=== PATIENT | female | born 1970 | race Caucasian/White ===

== ENCOUNTER → 2021-07-24 13:32 | Outpatient (BNVA) | payer OTHER, SELFPAY | PROVIDERS: PCP Internal Medicine; Visit Provider Nurse Practitioner Family ==

== ENCOUNTER → 2021-09-19 10:00 | Outpatient (BNVA) | payer OTHER, SELFPAY | PROVIDERS: PCP Registered Nurse; Visit Provider Nurse Practitioner Family ==

== ENCOUNTER → 2022-02-14 11:18 | Outpatient (BNVA) | payer OTHER, SELFPAY | PROVIDERS: PCP Registered Nurse; Visit Provider Nurse Practitioner Family | DX: F07.81 Postconcussional syndrome (principal); G43.109 Migraine with aura, not intractable, without status migrainosus; G25.81 Restless legs syndrome | CPT/HCPCS: 99212 ==

== ENCOUNTER → 2022-05-19 10:35 | Outpatient (BNVA) | payer OTHER, SELFPAY | PROVIDERS: PCP Registered Nurse; Visit Provider Nurse Practitioner Family | DX: G43.109 Migraine with aura, not intractable, without status migrainosus (principal); F07.81 Postconcussional syndrome; G25.81 Restless legs syndrome | CPT/HCPCS: 99212 ==

== ENCOUNTER 2023-12-02 07:54 | Outpatient (AMB) | payer OTHER, SELFPAY ==
--- NOTE | 2023-12-02 07:59 | MHC.OFFVIS ---
Vital Signs 12/02/23 08:01 Height 5 ft 2 in Weight 195 lb BMI 35.7 BP 124/88 Blood Pressure Location Rt brachial Position Sitting Pulse 86 Pulse Source Pulse Oximeter Pulse Oximetry (%) 96 Oxygen Delivery Method Room Air Intake Visit Reasons: Follow up-LVM Intake Note: Patient presents for follow up. Patient hasn't followede up for in 2 years patient having difficult concentrating, loses balance poor memory and vertigo. Allergies sumatriptan [From Imitrex] Allergy (Verified 12/02/23 08:03) chest pain, left jaw pain, LUE pain buspirone [From BuSpar] Adverse Reaction (Verified 12/02/23 08:03) unknown diphenhydramine [From Benadryl] Adverse Reaction (Verified 12/02/23 08:03) awake for days. topiramate [From Topamax] Adverse Reaction (Verified 12/02/23 08:03) makes her burst out inappropriate things- Tourettes like. Medication List - Last Reconciled 12/02/23 by RADHA Matthews albuterol sulfate 90 mcg/actuation 2 puffs inhalation Q4H albuterol-budesonide 90-80 mcg/actuation (Airsupra) 2 inhalations inhalation DAILY PRN amitriptyline 50 mg PO DAILY amitriptyline 1/2 tab qhs x's 4 weeks then 1 tab qhs PO bedtime; 30 days avnroqjojj-usvpugwv-qylbmvywlf 160-9-4.8 mcg/actuation (Breztri Aerosphere) 2 inhalations inhalation BID chlorthalidone 15 mg PO DAILY ferrous gluconate (Ferate) 240 mg PO DAILY fluticasone furoate-vilanterol 200-25 mcg/dose (Breo Ellipta) 1 inh inhalation DAILY gabapentin 600 mg PO BEDTIME 30 days galcanezumab-gnlm (Emgality Pen) 120 mg subcut ONCE 30 days lactulose 20 grams (30 mL) PO BID PRN 30 days lamotrigine (Lamictal) 300 mg PO DAILY linaclotide (Linzess) 144 mcg PO DAILY lorazepam 0.5 mg PO DAILY PRN magnesium oxide 400 mg PO DAILY montelukast (Singulair) mg PO DAILY omeprazole 20 mg PO BID quetiapine (Seroquel) 400 mg PO BEDTIME quetiapine (Seroquel) 225 mg PO BEDTIME ropinirole 2.5 mg PO DAILY ubrogepant 50 - 100 mg orally at onset of migraine, may repeat in 2 hours (max 200mg/day) PRN; may take w/ Aleve 30 days HPI Comments Details: 53-yr-old female presents for f/u visit. Pt last seen 2 yrs ago by us. Pt reports she was doing better, was exercising regularly. Then she had Covid-19 in May, and since she has had increased SOB on exertion. She has not been as active. She has gained approx 25 lbs. She has seen her applied psychology professor, who had her do PFT- which were mildly abnormal. She saw cardiology- had a stress test on Thursday, and is scheduled for echocardiogram and nuclear scan. She states recent labs- She recently saw a dentist, who was concerned she may have sleep apnea. Pt endorses- snoring, apneas, unrefreshing, fatigue. Pt reports she has been having increased forgetfulness, word finding difficulties. She has been losing her balance more. She can feel spacey or like In January, she had a fall and sent for PT at [facility]. She had a vestibular eval- and was told positive test but was advised to see neuro. After the dizziness started she had an increase in migraines. At some point she had a 2 week migraine. More recently she has been having a migraine 2 x's per week. She has some days w/ low grade headache. The Ubrelvy helps. Emgality was denied. She is still on Amitriptyline and Lamotrigine. [facility] Medical History Carpal tunnel syndrome on both sides Surgical History History of back surgery History of bladder surgery [place] teeth removed H/O foot surgery Hx of cholecystectomy Family History Father Heart disease Glaucoma Hyperlipidemia Mother Osteopenia Social History Household Members: Children Alcohol intake: former Patient Tobacco Use Status: Never used Tobacco Current occupational status: employed Current occupation: BEHAVIORAL HEALTH CLINICIAN Physical Exam Vital Signs: Last Vital Signs Pulse 86 12/02/23 08:01 BP 124/88 12/02/23 08:01 Pulse Ox 96 12/02/23 08:01 Oxygen Delivery Method Room Air 12/02/23 08:01 BMI result Body Mass Index 35.7 Const General: cooperative and no acute distress Orientation/consciousness: patient oriented x3 Resp Effort & Inspection: normal respiratory effort and able to speak in complete sentences Neuro General: patient oriented x3 Cranial nerves: Yes CN's II-XII intact bilaterally (w/ exception of delayed EOM) Cognition (Neuro): normal cognition Psych Appearance: grossly normal Mental Status: mental status grossly normal Speech and movement: Normal speech and movement present Affect: normal affect Attitude: cooperative Assessment & Plan Assessment & Plan (1) Sleep difficulties: Code(s): G47.9 - Sleep disorder, unspecified Category: Medical (2) Snoring: Code(s): R06.83 - Snoring Category: Medical (3) Excessive daytime sleepiness: Code(s): G47.19 - Other hypersomnia Category: Medical (4) Cognitive changes: Code(s): R41.89 - Other symptoms and signs involving cognitive functions and awareness Category: Medical (5) Vertigo: Code(s): R42 - Dizziness and giddiness Category: Medical (6) Cognitive changes: Code(s): R41.89 - Other symptoms and signs involving cognitive functions and awareness Category: Medical (7) History of COVID-19: Code(s): Z86.16 - Personal history of COVID-19 Category: Medical (8) Vertigo: Code(s): R42 - Dizziness and giddiness Category: Medical (9) Migraine with aura and without status migrainosus, not intractable: Code(s): G43.109 - Migraine with aura, not intractable, without status migrainosus Category: Medical Plan Will request recent lab work-up by applied psychology professor and PCP. Check almotrigine and amitriptyline levels today. HST to assess status of sleep apnea- pt is not on PAP and does not have a PAP machine Brain MRI w/wo to assess for central etiologies of vertigo and cognitive changes- pt requests open MRI w/ pre-med. Will refer to vestibular PT specialist. For migraine: Emgality 240mg- denied. Continue amitriptyline 50mg qhs Resume magnesium, riboflavin.? Continue the Ubrelvy as needed, max 200 mg per day.? May adjunct with ibuprofen or naproxen as needed. Previous prvention tx trials: Topiramate- mood changes, Tx contraindications: BBs d/t dx of asthma. For restless legs: Monitor f/u upon revioew of above and in 3 months or sooner in clinic Orders: Orders RT home sleep study Today G47.19 - Other hypersomnia, G47.9 - Sleep disorder, unspecified, R06.83 - Snoring Lamotrigine Lamictal Today R42 - Dizziness and giddiness PT Evaluation and Treatment Today G43.109 - Migraine with aura, not intractable, without status migrainosus, R42 - Dizziness and giddiness Amitriptyline (Elavil), Serum Today R41.89 - Other symptoms and signs involving cognitive functions and awareness, R42 - Dizziness and giddiness EEG electroencephalogram Today R41.89 - Other symptoms and signs involving cognitive functions and awareness MR head/brain wo/w con Today R41.89 - Other symptoms and signs involving cognitive functions and awareness, R42 - Dizziness and giddiness, Z86.16 - Personal history of COVID-19 Medications: New riboflavin (vitamin B2) 400 mg PO DAILY 30 days 30 tabs 6RF alprazolam (2 x 0.25 mg) 0.5 mg orally 0 minutes prior to MRI, may repeat x's 1; 1 day 4 tabs 0RF Changed From magnesium oxide 400 mg PO DAILY To magnesium oxide 400 mg PO DAILY 30 days 30 caps 6RF Coding Level of Care Code Est Pt Level 4 (77182) Diagnoses Sleep difficulties G47.9 Snoring R06.83 Excessive daytime sleepiness G47.19 Cognitive changes R41.89 Vertigo R42 History of COVID-19 Z86.16 Migraine with aura and without status migrainosus, not intractable G43.109 [place] Sleepiness Scale Questions Sitting and reading: high chance of dozing Watching TV: high chance of dozing Sitting inactive in a theater, movie etc.: high chance of dozing As a passenger in a car for an hour without break: would never doze Lying down in the afternoon when circumstances permit: high chance of dozing Sitting and talking to someone: would never doze Sitting quietly after lunch without alcohol: high chance of dozing In a car, while stopped for a few minutes in the traffic: would never doze ESS < 10: normal, ESS > 12: pathologic: 15
[2023-12-02 08:01] VITALS: BP 124/88; PULSE 86; O2SAT 96; BMI 35.7
== END 2023-12-02 08:57 | disposition home or self-care (01) ==
PROVIDERS: PCP Registered Nurse; Visit Provider Nurse Practitioner Family
DX: G47.9 Sleep disorder, unspecified (principal); R06.83 Snoring; G47.19 Other hypersomnia; R41.89 Other symptoms and signs involving cognitive functions and awareness; R42 Dizziness and giddiness; Z86.16 Personal history of COVID-19; G43.109 Migraine with aura, not intractable, without status migrainosus
CPT/HCPCS: 99214

== ENCOUNTER → 2023-12-02 07:54 | Outpatient (BNVA) | payer OTHER, SELFPAY | PROVIDERS: PCP Registered Nurse; Visit Provider Nurse Practitioner Family ==

== ENCOUNTER 2023-12-02 08:57 | Outpatient (REF) | payer OTHER, SELFPAY ==
[2023-12-05 18:08] LABS: Lamotrigine Lamictal 7.2 mcg/mL (2.5-15.0)
== END 2023-12-02 08:58 | disposition home or self-care (01) ==
LOC: HO.HKASLDS 08:57
PROVIDERS: Visit Provider Nurse Practitioner Family
DX: R42 Dizziness and giddiness (principal)
CPT/HCPCS: 36415; 80175

== ENCOUNTER 2023-12-15 08:00 | Outpatient (REF) | payer OTHER, SELFPAY ==
--- NOTE | 2023-12-15 08:05 | EEG_ITS ---
FINDINGS: Waking background activity consists of a moderate voltage 10 hertz posterior alpha frequency that is seen symmetrically and attenuates well with eye opening, while low voltage fast frequencies predominate anteriorly. Photic stimulation and hyperventilation are without activation. No focal, lateralizing, or paroxysmal discharges are seen. IMPRESSION: This waking EEG is within normal limits. MD INDERJIT Ventura/TAY / [id number]
== END 2023-12-15 08:01 | disposition home or self-care (01) ==
LOC: HO.NEURO 08:00
PROVIDERS: PCP Registered Nurse; Visit Provider Nurse Practitioner Family
DX: R41.89 Other symptoms and signs involving cognitive functions and awareness (principal)
CPT/HCPCS: 95816

== ENCOUNTER → 2024-01-07 10:24 | Outpatient (REF) | payer OTHER, SELFPAY | LOC: HO.SL 10:24 | PROVIDERS: PCP Registered Nurse; Visit Provider Nurse Practitioner Family | DX: G47.19 Other hypersomnia (principal); R06.83 Snoring | CPT/HCPCS: 95806 ==

== ENCOUNTER 2024-01-08 08:00 | Outpatient (REF) | payer OTHER, SELFPAY ==
--- NOTE | ~2024-01-08 | MR_ITS ---
EXAMINATION: MR BRAIN WITHOUT AND WITH CONTRAST CLINICAL INFORMATION: Dizziness COMPARISON: None TECHNIQUE: Multiplanar multisequence MR imaging of the brain was obtained without and following the administration of 9 mL Gadavist intravenous contrast. FINDINGS: There is no acute infarct on diffusion-weighted imaging. There is no intracranial hemorrhage on iron-sensitive imaging. No extra-axial collection or mass effect/herniation. Normal parenchymal signal characteristics. No hydrocephalus. The ventricles are normal in morphology and size. No abnormal parenchymal or extra-axial enhancement. The major flow voids at the skull base are preserved. The midline structures are normal. The cerebellar tonsils are normally positioned. The craniocervical junction is normal. Marrow signal is within normal limits. The visualized soft tissues are without significant abnormality. Trace scattered paranasal sinus mucosal thickening. MR/MR head/brain wo/w con IMPRESSION: Unremarkable contrast enhanced MRI of the brain.
[2024-01-08] MEDS: gadobutroL 10 ML VIAL IVPUSH (09:01)
== END 2024-01-08 08:01 | disposition home or self-care (01) ==
LOC: HO.MRI 08:00
PROVIDERS: PCP Registered Nurse; Visit Provider Nurse Practitioner Family
DX: R42 Dizziness and giddiness (principal); R41.89 Other symptoms and signs involving cognitive functions and awareness; Z86.16 Personal history of COVID-19
CPT/HCPCS: 70553; A9585

== ENCOUNTER → 2024-01-10 11:00 | Outpatient (BNV) | payer OTHER, SELFPAY | PROVIDERS: PCP Registered Nurse; Visit Provider Psychiatry & Neurology Neurology | DX: R06.83 Snoring (principal) | CPT/HCPCS: 95806 ==

== ENCOUNTER 2024-03-03 07:20 | Outpatient (AMB) | payer OTHER, SELFPAY ==
--- NOTE | 2024-03-03 07:31 | MHC.OFFVIS ---
Vital Signs 03/03/24 07:32 Height 5 ft 2 in Weight 195 lb BMI 35.7 BP 124/78 Pulse 86 Pulse Source Pulse Oximeter Pulse Oximetry (%) 96 Oxygen Delivery Method Room Air Intake Visit Reasons: 3 Month F/U-CONF Intake Note: Patient presents for 3 month follow up. Patient states still having memory issues and vertigo. Allergies sumatriptan [From Imitrex] Allergy (Verified 03/03/24 07:40) chest pain, left jaw pain, LUE pain buspirone [From BuSpar] Adverse Reaction (Verified 03/03/24 07:40) unknown diphenhydramine [From Benadryl] Adverse Reaction (Verified 03/03/24 07:40) awake for days. topiramate [From Topamax] Adverse Reaction (Verified 03/03/24 07:40) makes her burst out inappropriate things- Tourettes like. Medication List - Last Reconciled 03/03/24 by RADHA Matthews albuterol sulfate 90 mcg/actuation 2 puffs inhalation Q4H albuterol-budesonide 90-80 mcg/actuation (Airsupra) 2 inhalations inhalation DAILY PRN alprazolam 0.5 mg orally 0 minutes prior to MRI, november repeat x's 1; 1 day amitriptyline 50 mg PO DAILY amitriptyline 1/2 tab qhs x's 4 weeks then 1 tab qhs PO bedtime; 30 days liidmfxtfy-lhfygqcn-aqjxctozlu 160-9-4.8 mcg/actuation (Breztri Aerosphere) 2 inhalations inhalation BID chlorthalidone 15 mg PO DAILY ferrous gluconate (Ferate) 240 mg PO DAILY fluticasone furoate-vilanterol 200-25 mcg/dose (Breo Ellipta) 1 inh inhalation DAILY gabapentin 300 mg PO BEDTIME galcanezumab-gnlm (Emgality Pen) 120 mg subcut ONCE 30 days lactulose 20 grams (30 mL) PO BID PRN 30 days lamotrigine (Lamictal) 300 mg PO DAILY linaclotide (Linzess) 144 mcg PO DAILY lorazepam 0.5 mg PO DAILY PRN magnesium oxide 400 mg PO DAILY 30 days montelukast (Singulair) mg PO DAILY omeprazole 20 mg PO BID quetiapine (Seroquel) 400 mg PO BEDTIME quetiapine (Seroquel) 225 mg PO BEDTIME riboflavin (vitamin B2) 400 mg PO DAILY 30 days ropinirole 2.5 mg PO DAILY ubrogepant 50 - 100 mg orally at onset of migraine, may repeat in 2 hours (max 200mg/day) PRN; may take w/ Aleve 30 days HPI Comments Details: 53-yr-old female presents for f/u visit. Pt denies any significant interval medical changes. Brain MRI was unremarkable HST showed AHI 4.2/hr. Lamotrigine level was WNL. Amitriptyline level was not drawn. She continues to have cognitive difficulties. States she has been easily distracted. She sometimes sends emails that others do not understand and when she reads it herself she does not understand. She almost had to go on a performance improvement plan at work. However, she also wonders if it is also r/t increased stress. 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 Her 18yo dtr recently gave to a baby- however pt was unaware dtr was until 2 wks before delivery (as dtr herself was unaware she was until very late). Dtr and dtr's and baby are now living with her. Has a low grade daily headache, and a stronger migraine 1-2 days per week. If she does not catch the migraine, it may last longer. Can still be photophobic. Pt can still be dizzy at times. She did not do the vestibular tx- they called around the time when her dtr gave . Continues to have sleeping diffciulties, snoring, daytime sleepiness. [facility] Medical History Carpal tunnel syndrome on both sides Surgical History History of back surgery History of bladder surgery [place] teeth removed H/O foot surgery Hx of cholecystectomy Family History Father Heart disease Glaucoma Hyperlipidemia Mother Osteopenia Social History Household Members: Children Alcohol intake: former Patient Tobacco Use Status: Never used Tobacco Current occupational status: employed Current occupation: BEHAVIORAL HEALTH CLINICIAN Physical Exam Vital Signs: Last Vital Signs Pulse 86 03/03/24 07:32 BP 124/78 03/03/24 07:32 Pulse Ox 96 03/03/24 07:32 Oxygen Delivery Method Room Air 03/03/24 07:32 BMI result Body Mass Index 35.7 Const General: cooperative and no acute distress Orientation/consciousness: patient oriented x3 Resp Effort & Inspection: normal respiratory effort and able to speak in complete sentences Neuro General: patient oriented x3 Cranial nerves: Yes CN's II-XII intact bilaterally Cognition (Neuro): normal cognition Psych Appearance: grossly normal Mental Status: mental status grossly normal Speech and movement: Normal speech and movement present Affect: normal affect Attitude: cooperative Assessment & Plan Assessment & Plan (1) Postconcussional syndrome: Comment: s/p workplace injury 06/22/19. Code(s): F07.81 - Postconcussional syndrome Category: Medical (2) Migraine with aura and without status migrainosus, not intractable: Code(s): G43.109 - Migraine with aura, not intractable, without status migrainosus Category: Medical (3) Restless leg syndrome: Comment: exacerbated by work-place concussion Code(s): G25.81 - Restless legs syndrome Category: Medical (4) Sleep difficulties: Code(s): G47.9 - Sleep disorder, unspecified Category: Medical (5) Snoring: Code(s): R06.83 - Snoring Category: Medical (6) Excessive daytime sleepiness: Code(s): G47.19 - Other hypersomnia Category: Medical (7) Cognitive changes: Code(s): R41.89 - Other symptoms and signs involving cognitive functions and awareness Category: Medical Plan Reviewed HST inconclusive- pt advised to undergo f/u in-lab PSG to furtehr assess status of sleep apnea Reviewed Brain MRI w/wo- unremarkable Again advised to start vestibular PT specialist- pt will call to schedule For cognition- Consider trial of low dose neuro-stimulant- pt will discuss w/ psychiatrist and let us know. ? For migraine: Continue amitriptyline 50mg qhs Resume magnesium, riboflavin.? Continue the Ubrelvy as needed, max 200 mg per day.? May adjunct with ibuprofen or naproxen as needed. Previous prvention tx trials: Topiramate- mood changes, Tx contraindications: BBs d/t dx of asthma. Note: Emgality 240mg- denied. ? For restless legs: Monitor Orders: Orders RT PSG in-lab sleep study Today RADHA Matthews Medications: Changed From gabapentin 600 mg PO BEDTIME 30 days 30 tabs 6RF To gabapentin 300 mg PO BEDTIME Raj Peguero CNP Coding Level of Care Code Est Pt Level 4 (18960) Diagnoses Postconcussional syndrome F07.81 Migraine with aura and without status migrainosus, not intractable G43.109 Restless leg syndrome G25.81 Sleep difficulties G47.9 Snoring R06.83 Excessive daytime sleepiness G47.19 Cognitive changes R41.89
[2024-03-03 07:32] VITALS: BP 124/78; PULSE 86; O2SAT 96; BMI 35.7
== END 2024-03-03 08:27 | disposition home or self-care (01) ==
PROVIDERS: PCP Registered Nurse; Visit Provider Nurse Practitioner Family
DX: G44.309 Post-traumatic headache, unspecified, not intractable (principal); F07.81 Postconcussional syndrome; G25.81 Restless legs syndrome; G47.9 Sleep disorder, unspecified; R06.83 Snoring; G47.19 Other hypersomnia; R41.89 Other symptoms and signs involving cognitive functions and awareness
CPT/HCPCS: 99214

== ENCOUNTER → 2024-03-03 07:20 | Outpatient (BNVA) | payer OTHER, SELFPAY | PROVIDERS: PCP Registered Nurse; Visit Provider Nurse Practitioner Family ==

== ENCOUNTER 2024-03-31 13:52 | Outpatient (AMB) | payer OTHER, SELFPAY ==
--- NOTE | 2024-03-31 14:20 | MHC.OFFVIS ---
Vital Signs 03/31/24 14:21 Height 5 ft 2 in Weight 192 lb BMI 35.1 BP 128/90 H Blood Pressure Location Lt brachial Position Sitting Pulse 100 Pulse Source Pulse Oximeter Pulse Oximetry (%) 96 Oxygen Delivery Method Room Air Intake Visit Reasons: Follow up Process Control Supervisor Required: No Accompanied by: Self / Same As Patient Allergies sumatriptan [From Imitrex] Allergy (Verified 03/31/24 14:21) chest pain, left jaw pain, LUE pain buspirone [From BuSpar] Adverse Reaction (Verified 03/31/24 14:21) unknown diphenhydramine [From Benadryl] Adverse Reaction (Verified 03/31/24 14:21) awake for days. topiramate [From Topamax] Adverse Reaction (Verified 03/31/24 14:21) makes her burst out inappropriate things- Tourettes like. Medication List - Last Reconciled 03/31/24 by RADHA Matthews albuterol-budesonide 90-80 mcg/actuation (Airsupra) 2 inhalations inhalation DAILY PRN amitriptyline 50 mg PO DAILY gslxsziaek-pytarqbo-tbdeglcfpz 160-9-4.8 mcg/actuation (Breztri Aerosphere) 2 inhalations inhalation BID chlorthalidone 15 mg PO DAILY cyclobenzaprine 10 mg PO BEDTIME gabapentin 200 mg PO BEDTIME lamotrigine (Lamictal) 300 mg PO DAILY lorazepam 0.5 mg PO DAILY PRN magnesium oxide 400 mg PO DAILY 30 days montelukast (Singulair) mg PO DAILY omeprazole 20 mg PO BID ondansetron 4 mg PO Q8H prednisone 50 mg PO DAILY quetiapine (Seroquel) 400 mg PO BEDTIME HPI Comments Details: 53-yr-old female presents for urgent visit s/p fall. Pt reports 4 days ago, 03/27/24, she was standing in her room as she was going to take her scheduled inhaler, when all of a sudden she started to fall backwards, striking her lower back and then her head on the hardwood floor. Pt did yell as she fell backwards. She is not sure if she had LOC- maybe a moment, as she found herself on her hands and knees and does not recall flipping over. Immediately, she felt shooting/aching head pain, nausea w/o vomiting, dizziness, neck and back pain. She states that overall the rest of the day was a blur. She did not go to the ER. Since, she has had a continuous migraine headache, photophobia, some dizziness after walking for a bit, She did try working this week, but her patients began telling her that she was repeating herself. She saw her PCP yesterday afternoon, who ordered a stat head CT which was read as normal. Her PCP has taken her out of work for a month. She is also on a 10 day Prednisone taper, Zofran, cyclobenzaprine. She has not had the sleep study yet or started PT- states needs a new order. She is not sure why she fell. Wonder is it is r/t her h/o l-spine repair. She denies numbness/tingling. [facility] Medical History Carpal tunnel syndrome on both sides Surgical History History of back surgery History of bladder surgery [place] teeth removed H/O foot surgery Hx of cholecystectomy Family History Father Heart disease Glaucoma Hyperlipidemia Mother Osteopenia Social History Household Members: Children Alcohol intake: former Patient Tobacco Use Status: Never used Tobacco Current occupational status: employed Current occupation: BEHAVIORAL HEALTH CLINICIAN Physical Exam Vital Signs: Last Vital Signs Pulse 100 03/31/24 14:21 BP 128/90 H 03/31/24 14:21 Pulse Ox 96 03/31/24 14:21 Oxygen Delivery Method Room Air 03/31/24 14:21 BMI result Body Mass Index 35.1 Const General: cooperative and no acute distress Orientation/consciousness: patient oriented x3 Resp Effort & Inspection: normal respiratory effort and able to speak in complete sentences Neuro Other: Photophobic EOM intact w/o nystagmus- though elicits feeling unwell. Unable to take ? 2 tandem steps. Romberg intact Finger-Nose- w/o dysmetria. Bilateral marked posterior cervical and upper trap tightness. Cervical ROM: limited General: patient oriented x3 Cranial nerves: Yes CN's II-XII intact bilaterally Cognition (Neuro): normal cognition Psych Appearance: grossly normal Mental Status: mental status grossly normal Speech and movement: Normal speech and movement present Affect: normal affect Attitude: cooperative Assessment & Plan Assessment & Plan (1) Concussion: Code(s): S06.0XAA - Concussion with loss of consciousness status unknown, initial encounter Category: Medical (2) Vertigo: Code(s): R42 - Dizziness and giddiness Category: Medical (3) Migraine with aura and without status migrainosus, not intractable: Code(s): G43.109 - Migraine with aura, not intractable, without status migrainosus Category: Medical (4) Postconcussional syndrome: Comment: s/p workplace injury 06/22/19. Code(s): F07.81 - Postconcussional syndrome Category: Medical Plan Pt still advised to have f/u in-lab PSG to further assess status of sleep apnea. ? For new onset concussion: Again advised to start vestibular PT specialist- ? if falls d/t vestibular dysfunction. Ibuprofen 600mg bid x's 7 days w/ food and q 6 hrs prn Cyclobenzaprine 10mg prn. Zofrna prn. Increase Amitriptyline from 50mg to 75mg- if tolerated, will update order. Stop Prednisone- as pt is currently suffering from acute concussion s/s. Continue magnesium, riboflavin.? Continue the Ubrelvy as needed, max 200 mg per day.? May adjunct with ibuprofen or naproxen as needed. Previous prevention tx trials: Topiramate- mood changes, Tx contraindications: BBs d/t dx of asthma. Note: Emgality 240mg- denied. Lamotrigine level- WNL in November 2023. Concur w/ abstaining from work x's 1 month. For cognition- Consider trial of low dose neurostimulant- per pt psychiatrist lower gabapentin instead. ? Medications: New ibuprofen take w/ food 600 mg PO Q6H 30 days PRN 120 tabs 0RF pain Coding Level of Care Code Est Pt Level 4 (60007) Diagnoses Concussion S06.0XAA Vertigo R42 Migraine with aura and without status migrainosus, not intractable G43.109 Postconcussional syndrome F07.81
[2024-03-31 14:21] VITALS: BP 128/90; PULSE 100; O2SAT 96; BMI 35.1
== END 2024-03-31 15:13 | disposition home or self-care (01) ==
PROVIDERS: PCP Registered Nurse; Visit Provider Nurse Practitioner Family
DX: S06.0XAA Concussion with loss of consciousness status unknown, initial encounter (principal); R42 Dizziness and giddiness; G43.109 Migraine with aura, not intractable, without status migrainosus
CPT/HCPCS: 99214

== ENCOUNTER → 2024-03-31 13:52 | Outpatient (BNVA) | payer OTHER, SELFPAY | PROVIDERS: PCP Registered Nurse; Visit Provider Nurse Practitioner Family ==

== ENCOUNTER 2024-08-05 09:18 | Outpatient (AMB) | payer OTHER, SELFPAY ==
[2024-08-05 09:31] VITALS: BP 148/92; PULSE 91; O2SAT 98; BMI 37.3
--- NOTE | 2024-08-05 09:31 | A.OFFVIS_ITS ---
Vital Signs 08/05/24 09:31 Height 5 ft 2 in Weight 204 lb BMI 37.3 BP 148/92 H Blood Pressure Location Rt brachial Position Sitting Pulse 91 Pulse Source Pulse Oximeter Pulse Oximetry (%) 98 Oxygen Delivery Method Room Air Intake Visit Reasons: Follow Up Sales Office Administrator Required: No Accompanied by: Self / Same As Patient Allergies sumatriptan [From Imitrex] Allergy (Verified 08/05/24 09:35) chest pain, left jaw pain, LUE pain buspirone [From BuSpar] Adverse Reaction (Verified 08/05/24 09:35) unknown diphenhydramine [From Benadryl] Adverse Reaction (Verified 08/05/24 09:35) awake for days. topiramate [From Topamax] Adverse Reaction (Verified 08/05/24 09:35) makes her burst out inappropriate things- Tourettes like. Medication List - Last Reconciled 08/05/24 by RADHA Matthews amitriptyline 50 mg PO DAILY nedsmqfrti-ywzlpagg-fijwyzganz 160-9-4.8 mcg/actuation (Breztri Aerosphere) 2 inhalations inhalation BID cyclobenzaprine 10 mg PO BEDTIME gabapentin 200 mg PO BEDTIME ibuprofen 600 mg PO Q6H PRN 30 days lamotrigine (Lamictal) 300 mg PO DAILY lorazepam 0.5 mg PO DAILY PRN magnesium oxide 400 mg PO DAILY 30 days montelukast (Singulair) mg PO DAILY omeprazole 20 mg PO BID ondansetron 4 mg PO Q8H prednisone 50 mg PO DAILY quetiapine (Seroquel) 400 mg PO BEDTIME Do you need a note to return to daycare/school/sports/work: No HPI Comments Details: 53-yr-old female presents for She notes she has been out of work since March s/p the fall. Pt reports she has been doing better- has not been having the crushing post- concussive headache. However about a week ago, she started having a daily migraine headache. Some days were better than others. Yesterday, the migraine was much more severe- thought she was not going to make it, but the headache eventually broke last night. Just now, she realizes that she did bump her head about 2 weeks ago- and did h ave the same concussive type crushing headache for a few hours. She also notes she has had some difficulty with navigating door ways, is prone to bump into a door way. She plans to have follow-up eye exam, as generally she feels her vision isn't as good as before. Her amitriptyline was increased to 100 mg about a month ago, to help with the headache burden. She stopped Gabapentin completely about 1.5 months ago, in hopes this would help cognition. She was tried on stratterra by her psychiatrist, which may have helped some but it caused significant dry mouth and dry eye so she stopped it. Unfortunately, she is no longer seeing her psychiatrist. Her PCP has referred her for neuropsych testing, initially for postconcussive and now for ADD/ADHD evaluation. Pt reports she was diagnosed with possible depression by her automotive wholesale parts advisor in high school. As a child she states she was prone to procrastination, drooling, and felt school work was hard when in middle/high school. She was a better s tudent in college- in her late 20s. Her mother has been managing her finances- as she would forget to pay her bills- x's at least 10 yrs. Is prone to not opening her mail-wonders if this is residual anxiety R/T periods in her life when she could not afford to pay them. She has been criticized at work for not completing paperwork on time, and she fixes it for some time but then slips back do not completing her work on time. [facility] Medical History Carpal tunnel syndrome on both sides Surgical History History of back surgery History of bladder surgery [place] teeth removed H/O foot surgery Hx of cholecystectomy Family History Father Heart disease Glaucoma Hyperlipidemia Mother Osteopenia Social History Household Members: Children Alcohol intake: former Patient Tobacco Use Status: Never used Tobacco Current occupational status: employed Current occupation: BEHAVIORAL HEALTH CLINICIAN Physical Exam Vital Signs: Last Vital Signs Pulse 91 08/05/24 09:31 BP 148/92 H 08/05/24 09:31 Pulse Ox 98 08/05/24 09:31 Oxygen Delivery Method Room Air 08/05/24 09:31 BMI result Body Mass Index 37.3 Const General: cooperative and no acute distress Orientation/consciousness: patient oriented x3 Resp Effort & Inspection: normal respiratory effort and able to speak in complete sentences Neuro Other: Photophobic General: patient oriented x3 Cranial nerves: Yes CN's II-XII intact bilaterally Cognition (Neuro): normal cognition Psych Appearance: grossly normal Mental Status: mental status grossly normal Speech and movement: Normal speech and movement present Affect: normal affect Attitude: cooperative Assessment & Plan Assessment & Plan (1) Postconcussional syndrome: Comment: s/p workplace injury 06/22/19. Exacerbated by a fall with positive head strike in 04/08/2024 Code(s): F07.81 - Postconcussional syndrome Category: Medical (2) Vertigo: Code(s): R42 - Dizziness and giddiness Category: Medical (3) Migraine with aura and without status migrainosus, not intractable: Code(s): G43.109 - Migraine with aura, not intractable, without status migrainosus Category: Medical (4) Cognitive changes: Code(s): R41.89 - Other symptoms and signs involving cognitive functions and awareness Category: Medical Plan We will follow-up on order for in-lab PSG to further assess status of sleep apnea. For postconcussive syndrome, exacerbated by new concussion in 04/08/2024: Vestibular PT exercises. Concur with patient having an updated eye exam. If exam normal, but depth perception issues persists, consider referral to a diplopia specialist. For postconcussive migraine prevention: Continue magnesium, riboflavin.? Continue Amitriptyline 100 mg q.h.s. Previous prevention tx trials: Topiramate- mood changes, Tx contraindications: BBs d/t dx of asthma. Note: Emgality- denied. For acute postconcussive migraine treatment: Cyclobenzaprine 10mg prn muscle spasm. Ondansetron prn. Continue the Ubrelvy as needed, max 200 mg per day.? May adjunct with ibuprofen or naproxen as needed. For postconcussive cognitive difficulties: Start Adderall ER 5 mg q.a.m. and if tolerated may increase to 10 mg q.a.m- in hopes this reduces cognitive strain, and reduces risk for breakthrough headache, especially as she is returning to work. Concur with neuro psych or psychiatry eval for ADD/ADHD/postconcussive cognitive disorder. Reviewed common side effects to monitor for, including decreased appetite, palpitations, HTN. If HTN worsens, she may need to resume her chlorthalidone- possible that her amitriptyline is likely the primary cause of her dry mouth s/s, and thus we may need to consider decreasing this. Concur with neuropsych eval to assess for underlying undiagnosed ADD/ADHD which may have been exacerbated by her concussions. ? Medications: New dextroamphetamine-amphetamine 5 mg (Adderall) Partial Fill upon patient request. 10 mg (2 x 5 mg) PO DAILY 30 days 60 tabs 0RF Changed From amitriptyline 50 mg PO DAILY To amitriptyline 100 mg PO DAILY Coding Level of Care Code Est Pt Level 4 (63947) Diagnoses Postconcussional syndrome F07.81 Vertigo R42 Migraine with aura and without status migrainosus, not intractable G43.109 Cognitive changes R41.89
== END 2024-08-05 10:22 | disposition home or self-care (01) ==
PROVIDERS: PCP Registered Nurse; Visit Provider Nurse Practitioner Family
DX: R42 Dizziness and giddiness (principal); R41.89 Other symptoms and signs involving cognitive functions and awareness; F07.81 Postconcussional syndrome; G44.309 Post-traumatic headache, unspecified, not intractable
CPT/HCPCS: 99214

== ENCOUNTER 2025-04-13 13:49 | Outpatient (AMB) | payer MEDICAID, SELFPAY ==
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
[2025-04-13 14:00] VITALS: BP 120/90; PULSE 96; O2SAT 95; BMI 33.7
--- OUTSIDE RECORDS SUMMARY | 2025-04-13 18:20 | XMS_ITS | Clinical Summary ---
Author Organization [facility] Address [address] [place] [address] Phone Care Team Providers Care Camera Maker Name Role Phone Susan Naylor Primary Care Provider Allergies Active Allergy Reactions Criticality Noted Date Comments Amlodipine Itching 10/11/2024 Animal Dander Wheezing 10/11/2024 Buspirone Itching,Mental Status Change 10/11/2024 Buspar Cider Vinegar Rash Low 10/11/2024 Gluten Diarrhea 10/11/2024 Hydrochlorothiazide Insomnia Low 10/11/2024 hydrochlorothiaz safia Pollen Extracts Wheezing 10/11/2024 Shellfish Containing Products Anaphylaxis High 10/11/2024 Sumatriptan Angina,Palpitations High 10/11/2024 Temazepam Unknown 10/11/2024 Tramadol Joint Pain Low 10/11/2024 Medications omeprazole (PRILOSEC) 20 MG capsule TAKE 1 CAPSULE BY MOUTH TWICE DAILY DIRECTED 07/30/2024 Active SEROQUEL XR 400 mg 24 hr tablet Take 1 tablet by mouth daily. Active lamoTRIgine (LAMICTAL XR) 200 mg TR24 Take 400 mg by mouth daily. Active Social History Tobacco Use Types Packs/Day Years Used Date Smoking Tobacco: Never Assessed Education Answer Date Recorded Are you interested in more education? Not on nicole e 11/11/2023 Are you concerned about learning? Not on file 11/11/2023 No 11/11/2023 No 11/11/2023 Digital Access Answer Date Recorded No 11/11/2023 No 11/11/2023 Reliable internet access at home? Not on file 11/11/2023 Device with a working camera? Not on file Intimate Partner Violence Answer Date R ecorded Are you denied basic needs s uch as food, clothing, or medical care? No 10/11/2024 In the past 12 months have y ou been in a relationship with a person who hurts, threatens, or tries to control you? No 10/11/2024 Are you denied basic needs s uch as food, clothing, or medical care? No 10/11/2024 In the past 12 months have y ou been in a relationship with a person who hurts, threatens, or tries to control you? No 10/11/2024 Comments Unknown Sex and Gender Information Value Date Recorded Sex Assigned at Female 10/11/2024 12:26 AM EDT Legal Sex Female 8:33 PM EDT Gender Identity Female 11/18/2023 6:57 PM EDT Sexual Orientation Straight 10/11/2024 12 :26 AM EDT Last Filed Vital Signs Vital Sign Reading Time Taken Comments Blood Pressure 116/78 10/11/2024 3:00 AM EDT Pulse 81 10/11/2024 3:00 AM EDT Temperature 36.3 C (97.3 F) 10/11/2024 12:05 AM EDT temporal Respiratory Rate 14 10/11/2024 3:00 AM EDT Oxygen Saturation 100% 10/11/2024 3:00 AM EDT Inhaled Oxygen Concentration - - Weight 92.6 kg (204 lb 2.3 oz) 10/11/2024 12:06 AM EDT Height 160 cm (5' 3 ) 10/11/2024 12:06 AM EDT Body Mass Index 36.16 10/11/2024 12:06 AM EDT Plan of Treatment Health Maintenance Due Date Last Done Comments LIPID PANEL 1971 DEPRESSION SCREENING 1983 SMOKING Hx and SMOKELESS TOBACCO SCREENING 1984 HEPATITIS C SCREENING 1989 HIV ONE-TIME SCREENING (18-65 YEARS) 1989 PAP SMEAR 1992 COLOGUARD 2016 COLONOSCOPY 2016 COLORECTAL CANCER SCREENING 2016 FIT TEST 2016 FOBT 2016 SIGMOIDOSCOPY 2016 VIRTUAL COLONOSCOPY 2016 PNEUMOCOCCAL VACCINES (50+ years) (1 of 1 - PCV) 2021 ZOSTER VACCINES (2 of 2) 12/07/2023 10/12/2023 COVID-19 VACCINE ( - 2023- season) 2024 06/18/2023, 12/03/2021, 05/20/2021, Additional history exists MAMMOGRAM 08/26/2024 08/26/2022 Adult Td,Tdap Booster 10/06/2026 10/06/2016, 007 SCREENING FOR DIABETES 11/10/2026 11/11/2023 HEPATITIS A VACCINES Aged Out No long er eligible based on patient's age to complete this topic HIB VACCINES Aged Out No longer eligi ble based on patient's age to complete this topic MENINGOCOCCAL VACCINES (ACWY) Aged Out No longer eligible based on patient's age to complete this topic MENINGOCOCCAL VACCINES (B) Aged Out N o longer eligible based on patient's age to complete this topic Medical Devices Not on file [place] [address] [place] [address] PPO [employer] Care Teams Camera Maker Relationship Specialty Start Date End Date Susan Naylor PA [address] [address] PCP - General Physician Sheet Manager 11/11/23 Additional Source Comments The information contained in this document represents components of the legal health record. It is not the complete legal health record.[facility]
--- OUTSIDE RECORDS SUMMARY | 2025-04-13 18:20 | XMS_ITS | Encounter Summary ---
Author Organization [facility] Address [address] [place] [address] Phone Care Team Providers Care Metal Cnc Operator Name Role Phone Susan Naylor Primary Care Provider Encounter Details Date Type Department Care Team (Late st Contact Info) Description 11/11/2023 Ancillary Orders [facility], X-Ray - [address] [address] Danae Arias, [facility] [address], [address] [place], [place] [id number] [email or web address] Chest tightness (Primary Dx); Cough, unspecified type; SOB (shortness of breath) Social History Tobacco Use Types Packs/Day Years [...] with a working camera? Not on file Comments Unknown Sex and Gender Information Value Date Recorded Sex Assigned at Female 10/11/2024 12:26 AM EDT Legal Sex Female 8:33 PM EDT Gender Identity Female 11/18/2023 6:57 PM EDT Sexual Orientation Straight 10/11/2024 12 :26 AM EDT documented as of this encounter Plan of Treatment Not on file documented as of this encounter Results * XR CHEST PA AND LATERAL 2 VIEWS (11/11/2023 11:31 AM EDT) Anatomical Region Laterality Modality Chest Computed Radiogr aphy 11/11/2023 12:2 2 PM EDT Impressions 11/11/2023 12:22 PM EDT No acute findings. Narrative 11/11/2023 12:22 PM EDT XR CHEST PA AND LATERAL 2 VIEWS Referring clinician's provided indication for this examination in [facility]: Cough; Dyspnea (Shortness of Breath) COMPARISON: None FINDINGS: Lungs: Clear lungs. Pleura: No pleural effusion. No pneumothorax Heart/Mediastinum: Heart size normal. Bones/Soft Tissues: No acute finding Procedure Note Wilbur Cox MD, SHARI - 11/11/2023 XR CHEST PA AND LATERAL 2 VIEWS Referring clinician's provided indication for this examination in [facility]:Cough; Dyspnea (Shortness of Breath) COMPARISON: None FINDINGS: Lungs: Clear lungs. Pleura: No pleural effusion. No pneumothorax Heart/Mediastinum: Heart size normal. Bones/Soft Tissues: No acute finding IMPRESSION: No acute findings. Danae Arias DNP IMG XR CHEST Final Resu lt documented in this encounter Visit Diagnoses Diagnosis Chest tightness- Primary Other chest pain Cough, unspecified type SOB (shortness of breath) Shortness of breath Chest tightness Other chest pain Cough, unspecified type SOB (shortness of breath) Shortness of breath documented in this encounter Care Teams Metal Cnc Operator Relationship Specialty Start Date End Date Susan Naylor PA [address] [place] [address] PCP - General Physician Salesperson Women'S Dresses 11/11/23 documented as of this encounter Additional Source Comments The information contained in this document represents components of the legal health record. It is not the complete legal health record.[facility]
== END 2025-04-13 15:34 | disposition home or self-care (01) ==
LOC: HO.HSMS 13:49
PROVIDERS: PCP Student in an Organized Health Care Education/Training Program; Visit Provider Nurse Practitioner Family
DX: G47.419 Narcolepsy without cataplexy (principal); F07.81 Postconcussional syndrome; G44.309 Post-traumatic headache, unspecified, not intractable; R42 Dizziness and giddiness; R41.89 Other symptoms and signs involving cognitive functions and awareness; R55 Syncope and collapse; H53.9 Unspecified visual disturbance
CPT/HCPCS: 99214

== ENCOUNTER 2025-04-13 13:49 | Outpatient (REF) | payer MEDICAID, SELFPAY ==
[2025-04-13 17:56] LABS: MANUAL DIFF FLAG NO
[2025-04-13 18:07] LABS: Hematocrit 41.2 % (37.0-47.0); Hemoglobin 13.6 g/dl (12.0-16.0); Imm Gran Abs Auto 0.02 X10*3/uL (0.00-0.03); Imm Gran Pct Auto 0.3 % (0.0-0.4); Lymphocytes Absolute Auto 1.9 X10*3/uL (1.2-4.9); Mean Corpuscular HGB Conc 33.0 g/dl (31.0-35.0); Mean Corpuscular Hemoglobin 30.6 pg (27.0-33.0); Mean Corpuscular Volume 92.8 fL (80.0-98.0); NRBC Abs Auto 0.000 X10*3/uL (0.0-0.012); NRBC Pct Auto 0.0 /100WBC (0.0-0.2); Platelet Count 276 X10*3/uL (160-400); Red Blood Count 4.44 X10*6/uL (4.20-5.50); White Blood Count 7.0 X10*3/uL (4.8-10.8)
[2025-04-13 18:41] LABS: Alanine Aminotransferase 42 U/L (0-31); Albumin Level 4.6 g/dL (3.5-5.0); Alkaline Phosphatase 93 U/L (39-117); Anion Gap 13 (12-20); Aspartate Amino Transferase 29 U/L (5-31); Blood Urea Nitrogen 6 mg/dL (9-16); Calcium 9.4 mg/dL (8.4-10.2); Carbon Dioxide 31 mmol/L (22-29); Chloride 104 mmol/L (96-108); Estimated Glomerular Filt Rate 59; Ferritin 69 ng/mL (10-250); Iron 61 mcg/dL (30-160); Magnesium 2.7 mg/dL (1.6-2.6); Percent Iron Saturation 19 % (15-50); Potassium 4.5 mmol/L (3.3-5.1); Sodium 143 mmol/L (135-145); Total Iron Binding Capacity 314 mcg/dL (228-428); Total Protein 7.1 g/dL (6.5-8.0); Unsaturated Iron Binding 253 ug/dL
[2025-04-13 18:57] LABS: Folate 4.8 ng/mL (> or = 4.0); Vitamin B12 328 pg/mL (200-900)
[2025-04-19 14:29] LABS: Vitamin D 25-OH, D2 <4 ng/mL; Vitamin D 25-OH, D3 53 ng/mL; Vitamin D 25-OH, Total 53 ng/mL (30-100)
== END 2025-04-13 13:50 | disposition home or self-care (01) ==
LOC: HO.HKASLDS 13:49
PROVIDERS: PCP Student in an Organized Health Care Education/Training Program; Visit Provider Nurse Practitioner Family
DX: R55 Syncope and collapse (principal); F07.81 Postconcussional syndrome; D64.9 Anemia, unspecified; H53.9 Unspecified visual disturbance; R42 Dizziness and giddiness; R53.83 Other fatigue; E55.9 Vitamin D deficiency, unspecified; E51.9 Thiamine deficiency, unspecified; G47.419 Narcolepsy without cataplexy; G43.109 Migraine with aura, not intractable, without status migrainosus; R41.89 Other symptoms and signs involving cognitive functions and awareness
CPT/HCPCS: 36415; 80053; 82306; 82607; 82728; 82746; 83540; 83735; 84207; 84425; 84443; 85025; 85652; 86140; 99212

== ENCOUNTER 2025-06-20 09:56 | Outpatient (REF) | payer MEDICAID, SELFPAY ==
--- OUTSIDE RECORDS SUMMARY | 2025-06-20 11:09 | XMS_ITS | Clinical Summary ---
Author Organization [facility] Address [address] [place] [address] Phone Care Team Providers Care National Sales Manager Name Role Phone Susan Naylor Primary Care [...] ZOSTER VACCINES (2 of 2) 12/07/2023 10/12/2023 MAMMOGRAM 08/26/2024 08/26/2022 INFLUENZA VACCINE (#1) 2025 , 04/15/2022, 05/20/2021, Additional history exists COVID-19 VACCINE ( season) 2025 06/18/2023, 12/03/2021, 05/20/2021, Additional history exists Adult Td,Tdap Booster 10/06/2026 10/06/2016, 007 SCREENING FOR DIABETES 11/10/2026 11/11/2023 RSV VACCINE (1 - 1-dose 75+ series) 2046 HEPATITIS A VACCINES Aged Out No long [...] topic Medical Devices Not on file Insurance [facility] PPO [facility] [employer] Member Subscriber Plan / Payer (Ef fective 2018-Present) Name:Brenda Pedro Relation to Subscriber:Self Name:Brenda Pedro Payer ID:Not on file Type:PPO Address: [address] Member Subscriber Plan / Payer (Ef fective 2018-Present) Name:Brenda Pedro Relation to Subscriber:Self Name:Brenda Pedro Payer ID:Not on file Type:PPO Address: [address] [employer] Member Subscriber Plan / Payer (Ef fective 2018-Present) Name:Brenda Pedro Relation to Subscriber:Self Name:Brenda Pedro Payer ID:Not on file Type:PPO Address: [address] [employer] Member Subscriber Plan / Payer (Ef fective 2018-Present) Name:Brenda Pedro Relation to Subscriber:Self Name:Brenda Pedro Payer ID:Not on file Type:PPO Address: [address] [employer] [address] [place], [place] [id number] Member Subscriber Plan / Payer (Ef fective 2018-Present) Name:Brenda Pedro Relation to Subscriber:Self Name:Brenda Pedro Payer ID:Not on file Type:PPO Address: [address] [employer] Care Teams National Sales Manager Relationship Specialty Start Date End Date Susan Naylor PA [address] [address] PCP - General Physician Relief Pilot 11/11/23 Additional Source Comments The information contained in this document represents components of the legal health record. It is not the complete legal health record.[facility]
--- OUTSIDE RECORDS SUMMARY | 2025-06-20 11:09 | XMS_ITS | Encounter Summary ---
Author Organization [facility] Address [address] [place] [address] Phone Care Team Providers Care Salesperson Florist Supplies Name Role Phone Susan Naylor Primary Care Provider Encounter Details Date Type Department Care Team (Late st Contact Info) Description 11/11/2023 Ancillary Orders [facility], X-Ray - [address] [address] Danae Arias, [facility] [address], [address] [place], [place] [id number] [email or web address] Chest tightness (Primary Dx); Cough, unspecified type; [...] clinician's provided indication for this examination in [facility]: Cough; Dyspnea (Shortness of Breath) COMPARISON: None FINDINGS: Lungs: Clear lungs. Pleura: No pleural effusion. No pneumothorax Heart/Mediastinum: Heart size normal. Bones/Soft Tissues: No acute finding Procedure Note Wilbur Cox MD, SHARI - 11/11/2023 XR CHEST PA AND LATERAL 2 VIEWS Referring clinician's provided indication for this examination in [facility]:Cough; Dyspnea (Shortness of Breath) COMPARISON: None [...] breath documented in this encounter Care Teams Salesperson Florist Supplies Relationship Specialty Start Date End Date Susan Naylor PA [address] [place] [address] PCP - General Physician Professor Of Poultry Science 11/11/23 documented as of this encounter Additional Source Comments The information contained in this document represents components of the legal health record. It is not the complete legal health record.[facility]
--- NOTE | 2025-06-20 12:26 | EEG_ITS ---
History: postconcussive syndrome, migraine, cognitive difficulties, vertigo, restless legs, anemia, CTS bilateral Description: Medication: amitriptyline, ijbizzdgno-vjietemg-lrpvymujfc, cholecalciferol, ibuprofen, lamotrigine, lorazepam, tosartan, magnesium oxide, montelukast, omeprazole, ondansetron, quetiapine, tirzepatide Technical description:? Photic stimulation: Yes Hyperventilation:?Yes Behavioral state: cooperative State of Consciousness: Awake Skull defect: None Sedation: None Handedness: Right Duration of study:? 30min ? ? 00sec This is a 16 channel EEG with an EKG lead. Patient is reported awake during the tracing. Background EEG rhythm is about 10 hertz 5-70 microvolt posteriorly and lower amplitude fast anteriorly. Photic stimulation does not produce any significant abnormality. Hyperventilation is unremarkable. Patient transitioned into drowsiness with no significant abnormality. Cardiac lead does not reveal any significant abnormality. No sharp wave spikes or paroxysmal tendency noted. Impression: Unremarkable EEG. MTDD
== END 2025-06-20 09:57 | disposition home or self-care (01) ==
LOC: HO.NEURO 09:56
PROVIDERS: PCP Student in an Organized Health Care Education/Training Program; Visit Provider Nurse Practitioner Family
DX: G47.419 Narcolepsy without cataplexy (principal); R55 Syncope and collapse
CPT/HCPCS: 95819

== ENCOUNTER → 2025-06-20 12:26 | Outpatient (BNV) | payer MEDICAID, SELFPAY | PROVIDERS: PCP Student in an Organized Health Care Education/Training Program; Visit Provider Psychiatry & Neurology Neurology | DX: G47.419 Narcolepsy without cataplexy (principal) | CPT/HCPCS: 95816 ==